=== PATIENT | male | born 1990 ===

== ENCOUNTER 2017-04-30 22:07 | Emergency (ER) | payer SELFPAY ==
[~2017-04-30] VITALS: Ht 182.9 cm; Wt 123.0 kg
[2017-04-30 22:14] VITALS: Ht 182.9 cm; Wt 123.0 kg
== END 2017-04-30 23:50 | disposition left against medical advice (07) ==
LOC: FTE 22:07 → E/R 23:50
DX: Z53.21 Procedure and treatment not carried out due to patient leaving prior to being seen by health care provider (principal)